=== PATIENT | male | born 1970 | race Caucasian/White ===

== ENCOUNTER 2016-04-19 12:04 | Emergency (ER) | payer BC ==
[2016-04-19 12:13] VITALS: BP 118/79
--- NOTE | 2016-04-19 12:52 | UC ---
Throat Pain/Nasal Félix HPI - HPI Summary HPI Summary: SINUS CONGESTON DRY COUGH SINCE . WORSENING WITH RASPY COUGH AND SINUS PRESSURE. NO FEVER. - History of Current Complaint Chief Complaint: UCRespiratory Stated Complaint: RESPIRATORY COMPLAINT Time Seen by Provider: 04/19/16 12:14 Hx Obtained From: Patient Onset/Duration: Gradual Onset, Lasting Weeks, Still Present Severity: Moderate Cough: Nonproductive Associated Signs & Symptoms: Positive: Hoarseness, Sinus Discomfort, Nasal Discharge, Fever - Epiglottits Risk Factors Epiglottis Risk Factors: Negative - Allergies/Home Medications Allergies/Adverse Reactions: Allergies Allergy/AdvReac Type Severity Reaction Status Date / Time Cephalosporins Allergy Intermediate Rash Verified 04/19/16 12:12 Macrolides and Ketolides Allergy Intermediate Rash Verified 04/19/16 12:12 Penicillins Allergy Intermediate Rash Verified 04/19/16 12:12 Sulfa Drugs Allergy Intermediate Rash Verified 04/19/16 12:12 PMH/Surg Hx/FS Hx/Imm Hx Previously Healthy: Yes Endocrine History Of: Reports: Dyslipidemia Denies: Diabetes, Thyroid Disease, Hyperthyroidism, Hypothyroidism Cardiovascular History Of: Denies: Cardiac Disorders, Hypertension, Pacemaker/ICD, Myocardial Infarction , Congestive Heart Failure, Atrial Fibrillation, Deep Vein Thrombosis, Bleeding Disorders Respiratory History Of: Denies: COPD, Asthma, Bronchitis, Pneumonia, Pulmonary Embolism GI/ History Of: Denies: Gastroesophageal Reflux, Ulcer, Gastrointestinal Bleed, Gall Bladder Disease, Kidney Stones, Diverticulitis, Renal Disease, Urosepsis Neurological History Of: Denies: TIA, CVA, Dementia, Seizures, Migraine Psychological History Of: Denies: Anxiety, Depression, Bipolar Disorder, Schizophrenia, Post Traumatic Stress Disorder Cancer History Of: Denies: Lung Cancer, Colorectal Cancer, Breast Cancer, Prostate Cancer, Cervical Cancer Other History Of: Negative For: HIV, Hepatitis B, Hepatitis C, Anticoagulant Therapy - Surgical History Surgical History: None Surgery Procedure, Year, and Place: lithotripsy several years ago - Family History Known Family History: Positive: None Negative: Respiratory Disease - Social History Occupation: Employed Full-time Alcohol Use: Weekly Substance Use Type: None Smoking Status (MU): Never Smoked Tobacco - Immunization History Most Recent Influenza Vaccination: December 2014 Review of Systems Constitutional: Negative Skin: Negative Eyes: Negative ENT: Ear Ache, Nasal Discharge Respiratory: Negative Cardiovascular: Negative Gastrointestinal: Negative Genitourinary: Negative Motor: Negative Neurovascular: Negative Musculoskeletal: Negative Neurological: Negative Psychological: Negative All Other Systems Reviewed And Are Negative: Yes Physical Exam Triage Information Reviewed: Yes Appearance: Well-Appearing, No Pain Distress, Well-Nourished Vital Signs: Initial Vital Signs Temp 98.7 F 04/19/16 12:09 Pulse 96 04/19/16 12:09 Resp 14 04/19/16 12:09 BP 118/79 04/19/16 12:09 Pulse Ox 96 04/19/16 12:09 Vital Signs Reviewed: Yes Eye Exam: Normal Eyes: Positive: Conjunctiva Clear ENT: Positive: Hearing grossly normal, Nasal congestion, TM bulging, TM dull Dental Exam: Normal Neck exam: Normal Neck: Positive: Supple, Nontender, No Lymphadenopathy Respiratory Exam: Normal Respiratory: Positive: Chest non-tender, Lungs clear, Normal breath sounds, No respiratory distress, No accessory muscle use Cardiovascular Exam: Normal Cardiovascular: Positive: RRR, No Murmur, Pulses Normal Abdominal Exam: Normal Abdomen Description: Positive: Nontender, No Organomegaly Musculoskeletal Exam: Normal Musculoskeletal: Positive: Strength Intact, ROM Intact Neurological Exam: Normal Psychological Exam: Normal Psychological: Positive: Normal Response To Family Skin Exam: Normal Throat Pain/Nasal Course/Dx - Differential Dx/Diagnosis Differential Diagnosis/HQI/PQRI: Sinusitis, URI Provider Diagnoses: SINUSITIS. BRONCHITIS Discharge - Discharge Plan Condition: Stable Disposition: HOME Prescriptions: Benzonatate CAP* [Tessalon CAP*] 100 mg PO TID PRN #15 cap PRN Reason: Cough DOXYcycline CAP(*) [DOXYcycline 100MG CAP(*)] 100 mg PO BID #20 cap predniSONE TAB* [Deltasone TAB*] 10 mg PO DAILY #28 tab Patient Education Materials: Sinusitis (ED), Acute Bronchitis (ED) Referrals: Karen Manzano NP [Primary Care Provider] -
== END 2016-04-19 12:54 | disposition home or self-care (01) ==
LOC: UCCORT 12:04
DX: J32.9 Chronic sinusitis, unspecified (principal); J40 Bronchitis, not specified as acute or chronic; E78.5 Hyperlipidemia, unspecified; Z88.0 Allergy status to penicillin; Z88.2 Allergy status to sulfonamides; Z88.3 Allergy status to other anti-infective agents; Z88.8 Allergy status to other drugs, medicaments and biological substances
CPT/HCPCS: 99212; G0463

== ENCOUNTER 2017-07-13 11:43 | Emergency (ER) | payer BC ==
[2017-07-13 13:47] VITALS: BP 119/85
--- NOTE | 2017-07-13 13:54 | UC ---
UC General HPI - HPI Summary HPI Summary: pt is c/o a sinus infection. describes as pressure and "nasty colored chinks" from nose. states ill for over a week and is worsening. states allergies this time of year and then sinus infection starts. - History of Current Complaint Stated Complaint: SINUS PRESSURE Time Seen by Provider: 07/13/17 13:45 Hx Obtained From: Patient Onset/Duration: Gradual Onset Timing: Constant Pain Intensity: 1 Associated Signs & Symptoms: Positive: Headache - Allergy/Home Medications Allergies/Adverse Reactions: Allergies Allergy/AdvReac Type Severity Reaction Status Date / Time Cephalosporins Allergy Rash Verified 07/13/17 13:49 Macrolide Antibiotics Allergy Rash Verified 07/13/17 13:49 Penicillins Allergy Rash Verified 07/13/17 13:49 Sulfa (Sulfonamide Allergy Rash Verified 07/13/17 13:49 Antibiotics) PMH/Surg Hx/FS Hx/Imm Hx - Additional Past Medical History Additional PMH: allergies, sinusitis Endocrine History: Dyslipidemia Other History Of: Negative For: HIV, Hepatitis B, Hepatitis C, Anticoagulant Therapy - Surgical History Surgical History: None Surgery Procedure, Year, and Place: lithotripsy several years ago - Family History Known Family History: Positive: None Negative: Respiratory Disease - Social History Occupation: Employed Full-time Lives: With Family Alcohol Use: Rare Substance Use Type: None Smoking Status (MU): Never Smoked Tobacco - Immunization History Most Recent Influenza Vaccination: December 2014 Vaccination Up to Date: Yes Review of Systems Constitutional: Negative Skin: Negative Eyes: Negative ENT: Nasal Discharge, Sinus Congestion, Sinus Pain/Tenderness Respiratory: Negative Cardiovascular: Negative Gastrointestinal: Negative Genitourinary: Negative Motor: Negative Neurovascular: Negative Musculoskeletal: Negative Neurological: Headache Psychological: Negative Is Patient Immunocompromised?: No All Other Systems Reviewed And Are Negative: Yes Physical Exam Triage Information Reviewed: Yes Appearance: Well-Appearing Vital Signs: Initial Vital Signs Temp 99.1 F 07/13/17 13:42 Pulse 78 07/13/17 13:42 Resp 16 07/13/17 13:42 BP 119/85 07/13/17 13:42 Pulse Ox 99 07/13/17 13:42 Vital Signs Reviewed: Yes Eyes: Positive: Conjunctiva Clear ENT: Positive: Pharynx normal, Nasal congestion, TMs normal, Sinus tenderness. Negative: Nasal drainage Neck: Positive: Supple, Nontender, No Lymphadenopathy Respiratory Exam: Normal Respiratory: Positive: Lungs clear, Normal breath sounds Cardiovascular: Positive: RRR, No Murmur Abdomen Description: Positive: Nontender, No Organomegaly, Soft Bowel Sounds: Positive: Present Musculoskeletal: Positive: ROM Intact Neurological: Positive: Alert Psychological: Positive: Age Appropriate Behavior Course/Dx - Course Course Of Treatment: c/w sinsusitis. pcn allergy thus will tx doxycycline. otc flonase suggested as well. - Differential Dx - Multi-Symptom Provider Diagnoses: sinusitis Discharge - Sign-Out/Discharge Documenting (check all that apply): Discharge - Discharge Plan Condition: Stable Disposition: HOME Prescriptions: DOXYcycline CAP(*) [DOXYcycline 100MG CAP(*)] 100 mg PO BID #20 cap Patient Education Materials: Sinusitis (ED) Referrals: Lilia Martinez MD [Primary Care Provider] - 7 Days - Billing Disposition and Condition Condition: STABLE Disposition: HOME
== END 2017-07-13 14:03 | disposition home or self-care (01) ==
LOC: UCCORT 11:43
DX: J32.9 Chronic sinusitis, unspecified (principal); Z88.2 Allergy status to sulfonamides; Z88.0 Allergy status to penicillin; Z88.3 Allergy status to other anti-infective agents
CPT/HCPCS: 99212; G0463

== ENCOUNTER 2018-01-14 18:35 | Emergency (ER) | payer BC, OTHER ==
[2018-01-14] MEDS ORDERED: Fluorescein Sodium TOPICAL* 1 MG TEST STRIP OPHTHALMIC ONE (18:40)
[2018-01-14] MEDS ORDERED: Tetracaine 0.5% OPTH.SOL 4 ML* 1 DROP BTL BOTH EYES ONE (18:40)
[2018-01-14 18:41] VITALS: BP 135/83
--- NOTE | 2018-01-14 18:43 | UC ---
Eye Complaint HPI - HPI Summary HPI Summary: 47 yo male presents with flash burn to left side of face/eye. 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 He had immediate pain, but rates it a 3/10. Eye is tearing and has some blurry vision. - History of Current Complaint Chief Complaint: UCEye Stated Complaint: EYE INJURY Time Seen by Provider: 01/14/18 18:42 Hx Obtained From: Patient Timing: Constant Severity Initially: Mild Severity Currently: Mild Pain Intensity: 3 Pain Scale Used: 0-10 Numeric - Allergies/Home Medications Allergies/Adverse Reactions: Allergies Allergy/AdvReac Type Severity Reaction Status Date / Time Cephalosporins Allergy Rash Verified 01/14/18 18:42 Macrolide Antibiotics Allergy Rash Verified 01/14/18 18:42 Penicillins Allergy Rash Verified 01/14/18 18:42 Sulfa (Sulfonamide Allergy Rash Verified 01/14/18 18:42 Antibiotics) PMH/Surg Hx/FS Hx/Imm Hx Endocrine History: Dyslipidemia Other History Of: Negative For: HIV, Hepatitis B, Hepatitis C, Anticoagulant Therapy - Surgical History Surgical History: Yes Surgery Procedure, Year, and Place: lithotripsy several years ago - Family History Known Family History: Positive: None Negative: Respiratory Disease - Social History Occupation: Employed Full-time Lives: With Family Alcohol Use: Rare Substance Use Type: None Smoking Status (MU): Never Smoked Tobacco - Immunization History Most Recent Influenza Vaccination: December 2014 Most Recent Tetanus Shot: unknown Vaccination Up to Date: Yes Review of Systems Constitutional: Negative Skin: Negative Eyes: Blurred Vision, Drainage, Eye Redness Respiratory: Negative Cardiovascular: Negative Neurological: Negative Psychological: Negative All Other Systems Reviewed And Are Negative: Yes Physical Exam - Summary Physical Exam Summary: GENERAL: NAD. WDWN. No pain distress. SKIN: No rashes, sores, lesions, or open wounds. HEENT: Head: AT/NC Eyes: EOM intact. PERRLA. LEFT EYE: Generalized moderate injection. Clear tears. Fluorescein exam WNL and without any increased uptake, punctate lesion, or karthik sign. RIGHT EYE: WNL and without inflammation or injection. Ears: Hearing grossly normal. TMs intact, no bulging, erythema, or edema. NECK: Supple. Nontender. No lymphadenopathy. CHEST: CTAB. No r/r/w. No accessory muscle use. Breathing comfortably and in no distress. CV: RRR. Without m/r/g. Pulses intact. Cap refill <2seconds NEURO: Alert. PSYCH: Age appropriate behavior. Triage Information Reviewed: Yes Vital Signs: Initial Vital Signs Temp 98.6 F 01/14/18 18:38 Pulse 74 01/14/18 18:38 Resp 18 01/14/18 18:38 BP 135/83 01/14/18 18:38 Pulse Ox 98 01/14/18 18:38 Vital Signs Reviewed: Yes Eye Complaint Course/Dx - Course Course Of Treatment: Tetracaine applied to left eye with great relief of discomfort. Pt's pain is currently well controled with 3/10 pain at base. He declined a prescription for pain medication at this time and will take tylenol and ibuprofen. He was dispensed saline eye drops to use one drop 4-5 times a day in his left eye. Advised to f/u with his own eye doctor in 3-[address] Trinh if his eye doctor cannot see him. Pt voiced understanding. - Differential Dx/Diagnosis Provider Diagnoses: Photokeratitis left eye Discharge - Sign-Out/Discharge Documenting (check all that apply): Patient Departure All imaging exams completed and their final reports reviewed: No Studies - Discharge Plan Condition: Stable Disposition: HOME Patient Education Materials: Corneal Flash Rossi (ED) Referrals: Lilia Martinez MD [Primary Care Provider] - Donaldo Trinh MD [Medical Doctor] - If Needed Additional Instructions: If you develop a fever, shortness of breath, chest pain, new or worsening symptoms - please call your PCP or go to the ED. 1) Use the eye drop once in the left 4-5 times a day 2) Please follow up with your eye doctor in 3-4 days - if he cannot see you, please follow up with Dr. Trinh at the number below. - Billing Disposition and Condition Condition: STABLE Disposition: Home
[2018-01-14] MEDS ORDERED: Eye Irrigation Solution 30 ML BOTTLE LEFT EYE ONE (19:09)
== END 2018-01-14 19:29 | disposition home or self-care (01) ==
LOC: UCEAST 18:35
DX: H16.132 Photokeratitis, left eye (principal); Z88.1 Allergy status to other antibiotic agents; Z88.0 Allergy status to penicillin; Z88.2 Allergy status to sulfonamides
CPT/HCPCS: 99212; A9270-GY; G0463

== ENCOUNTER 2019-03-28 09:58 | Emergency (ER) | payer BC, OTHER ==
--- OUTSIDE RECORDS SUMMARY | 2019-03-28 11:12 | XMS REPORT | Continuity of Care Document ---
:1970 External Reference #:[id number] Author Name Hoa Moreno M.D. Address [address] [address] Care Team Providers Name Role Phone Ellie Rendon, PNP-BC, [employer], Ibclc Care Team Information Implementation Project Manager [phone] - Family Problems Active Problems Provider Date Hyperlipidemia Ary Vizcarra FNP Onset: 03/02/2012 Benign prostatic hyperplasia Nawaf Manzano FNP Onset: 04/18/2015 Note: followed by Dr. Moreno Prostate specific antigen abnormal Nawaf Manzano FNP Onset: 2015 Note: followed by Dr. Moreno Impotence of organic origin Nawfa Manzano FNP Onset: 04/18/2015 Note: followed by Dr. Moreno Bilateral inguinal hernia Hoa Moreno M.D. Onset: 03/18/2019 Malignant tumor of prostate Hoa Moreno M.D. Onset: 03/11/2019 Kidney stone Hoa Moreno M.D. Onset: 10/15/2018 Social History Type Date Description Comments Sex Unknown Smokeless Tobacco Never Used Smokeless Tobacco ETOH Use Rarely consumes alcohol Tobacco Use Start: Unknown Patient has never smoked Recreational Drug Use Denies Drug Use Smoking Status Reviewed: 03/17/19 Patient has never smoked Exercise Type/Frequency Does not exercise Allergies, Adverse Reactions, Alerts Active Allergies Reaction Severity Comments Date Sulfa Antibiotics 10/26/2013 Macrolides And Ketolides 10/26/2013 Cephalosporins 10/26/2013 Penicillins 05/28/2011 Erythromycin 05/28/2011 Medications Active Medications SIG Qnty Indications Ordering Provider Date Tadalafil take 1 tab once 14tabs Hoa Moreno, 10/15/2018 20mg Tablets a day as needed M.D. the day of intercourse. Atorvastatin Calcium take 1 tablet by 90tabs Ellie Rendon, 06/06/2014 10mg mouth once daily PNP-BC, [employer], Tablets Ibclc Immunizations CPT Code Status Date Vaccine Lot # [id number] Given 02/01/2009 H1N1 Immuniation Adminstration Vital Signs Date Vital Result Comment 03/18/2019 4:13pm BP Systolic 140 mmHg BP Diastolic 90 mmHg Body Temperature 96.9 F Heart Rate 85 /min Respiratory Rate 16 /min Height 71 inches 5'11" Pain Level 0 [place] body weight in kilograms 78 kg O2 % BldC Oximetry 97 % 03/11/2019 4:04pm BP Systolic 127 mmHg BP Diastolic 84 mmHg Body Temperature 99.3 F Heart Rate 91 /min Respiratory Rate 16 /min Height 71 inches 5'11" Pain Level 0 [place] body weight in kilograms 78 kg O2 % BldC Oximetry 98 % Results Test Acquired Date Facility Test Result H/L Range Note Basic Metabolic 03/16/2019 [facility] Glucose 104 mg/dL Normal 74-106 1 Panel [address] [place] [address] [phone] BUN 16 mg/dL Normal 7-18 Creatinine 1.1 mg/dL Normal 0.6-1.3 Glom Filtration Rate, Estimate >60 mL/min >60 If >60 mL/min >60 2 BUN/Creat 14.5 ratio Sodium 139 mmol/L Normal 136-145 Potassium 4.2 mmol/L Normal 3.5-5.1 Chloride 106 mmol/L Normal 98-107 Carbon Dioxide 30 mmol/L Normal 21-32 Anion Gap 3 mEq/L Low 8-16 Calcium 9.1 mg/dL Normal 8.5-10.1 Ua RFX Micro & 02/04/2019 [facility] Urine Color Light-Yellow Yellow 3 Culture II [address] [place] [address] [phone] Urine Clarity Clear Clear Urine Glucose - Dipstick NEGATIVE mg/dL Negative Urine Bilirubin - Dipstick NEGATIVE Negative Urine Ketone NEGATIVE mg/dL Negative Urine Specific [place] 1.021 Normal 1.010-1.030 Urine Blood NEGATIVE Negative Urine PH 6.0 Low 6.5-7.5 Urine Protein - Dipstick NEGATIVE mg/dL Negative Urine Urobilinogen - Dipstick 2.0 mg/dL < 2.0 Urine Nitrite - Dipstick NEGATIVE Negative Urine Leuk Esterase NEGATIVE Negative Source: URINE, CLEAN CAT <SEE NOTE> 4 Laboratory test 02/04/2019 [facility] Prostate 6.37 ng/mL < 4.0 [address] [place] [address] Antigen [phone] Laboratory test 01/25/2019 [facility] Prostate 7.02 ng/mL < 4.0 [address] [place] [address] Antigen [phone] Urine Dipstick 10/28/2018 [facility] Ua Leuko - Negative Ua Nitrite - Negative Ua Urobilinogen .2 0.2 - 1.0 E.U./dL Ua Protein - Negative Ua PH 5.5 Low 6.5-7.5 Ua Blood - Negative Ua Specific [place] 1.030 1.010-1.030 Ua Ketones - Negative Ua Bilirubin - Negative Ua Glucose - Negative Comprehensive 10/27/[address] [facility] [address] Glucose 79 mg/dL Normal 74-106 7 Metabolic Panel [address] [place] [address] [phone] BUN 20 mg/dL High 7-18 Creatinine 1.0 mg/dL Normal 0.6-1.3 Glom Filtration Rate, Estimate >60 mL/min >60 If >60 mL/min >60 8 BUN/Creat 20.0 ratio Sodium 141 mmol/L Normal 136-145 Potassium 3.6 mmol/L Normal 3.5-5.1 Chloride 107 mmol/L Normal 98-107 Carbon Dioxide 26 mmol/L Normal 21-32 Anion Gap 8 mEq/L Normal 8-16 Calcium 9.2 mg/dL Normal 8.5-10.1 Total Protein 7.9 g/dL Normal 6.4-8.2 Albumin 4.2 g/dL Normal 3.4-5.0 Globulin 3.7 g/dL Normal 1.9-4.3 Alb/Glob 1.1 ratio Bilirubin,Total 1.2 mg/dL High 0.2-1.0 Sgot/Ast 36 U/L Normal 15-37 SGPT/Alt 44 U/L Normal 12-78 Alkaline Phosphatase 75 U/L Normal 45-117 LDL Cholesterol Profile 10/27/[address] [facility] [address] Cholesterol 177 mg/dL <200 9 [address] [place], [place] [id number] [phone] Triglycerides 90 mg/dL <150 10 HDL Cholesterol 44 mg/dL >40 11 LDL-Cholesterol 115 mg/dL < 100 12 Urine Dipstick 10/15/2018 [facility] Ua Color Yellow Yellow Ua Clarity Clear Clear Ua Leuko Negative Negative Ua Nitrite Negative Negative Ua Urobilinogen 0.2 0.2 - 1.0 E.U./dL Ua Protein Negative Negative Ua PH 6.0 Low 6.5-7.5 Ua Blood Negative Negative Ua Specific [place] 1.020 1.010-1.030 Ua Ketones Negative Negative Ua Bilirubin Negative Negative Ua Glucose Negative Negative Ua RFX Micro & Culture 10/15/2018 [facility] Urine Color YELLOW Yellow 13 II [address] [place], [place] [id number] [phone] Urine Clarity CLEAR Clear Urine Glucose - Dipstick NEGATIVE mg/dL Negative Urine Bilirubin - Dipstick NEGATIVE Negative Urine Ketone NEGATIVE mg/dL Negative Urine Specific [place] 1.015 Normal 1.010-1.030 Urine Blood NEGATIVE Negative Urine PH 6.5 Normal 6.5-7.5 Urine Protein - Dipstick NEGATIVE mg/dL Negative Urine Urobilinogen - Dipstick 0.2 E.U./dL Normal 0.2-1.0 Urine Nitrite - Dipstick NEGATIVE Negative Urine Leuk Esterase NEGATIVE Negative Source: URINE, CLEAN CAT <SEE NOTE> 14 Laboratory test 10/15/2018 [facility] Prostate 5.69 ng/mL < 4.0 15 finding [address] [place] [address] Antigen [phone] 1 C61 2 Note: Persistent reduction for 3 months or more in an eGFR <60 mL/min/1.73 m2 defines CKD. Patients with eGFR values >/=60 mL/min/1.73 m2 may also have CKD if evidence of persistent proteinuria is present. The original MDRD equation for estimated GFR is not valid for patients less than 18 years of age. Additional information may be found at www.kdoqi.org. 3 R97.20 4 URINE, CLEAN CATCH 5 THIS ASSAY IS NOT INTENDED A CANCER SCREENING TEST The concentration of PSA in a given specimen, determined with assays from different manufacturers, can vary due to differences in assay methods and reagent specificity. Values obtained from different assay methods cannot be used interchangeably. Method: Siemens Dimension Earp Chemiluminescent immunoassay. 6 THIS ASSAY IS NOT INTENDED A CANCER SCREENING TEST The concentration of PSA in a given specimen, determined with assays from different manufacturers, can vary due to differences in assay methods and reagent specificity. Values obtained from different assay methods cannot be used interchangeably. Method: Siemens Dimension Earp Chemiluminescent immunoassay. 7 E78.5 has appt w/pcp dr. ivan 10/28/18 to discuss 8 Note: Persistent reduction for 3 months or more in an eGFR <60 mL/min/1.73 m2 defines CKD. Patients with eGFR values >/=60 mL/min/1.73 m2 may also have CKD if evidence of persistent proteinuria is present. The original MDRD equation for estimated GFR is not valid for patients less than 18 years of age. Additional information may be found at www.kdoqi.org. 9 Reference Guidelines*: Desirable: ........... < 200 mg/dL Borderline High: ..... 200-239 mg/dL High: ................ >= 240 mg/dL * The National Cholesterol Education Program (NCEP) 10 Reference Guidelines*: Normal: ............. < 150 mg/dL Borderline High: .... 150-199 mg/dL High: ............... 200-499 mg/dL Very High: .......... > 500 mg/dL * Source: National Cholesterol Education Program (NCEP) 11 Reference Guidelines*: Low HDL: ..... < 40 mg/dL Normal: ..... 40-60 mg/dL Desirable: ... > 60 mg/dL *The National Cholesterol Education Program(NCEP) 12 Reference Guidelines*: Optimal:........... <100 mg/dL Near Optimal....... 100-129 mg/dL Borderline High.... 130-159 mg/dL High............... 160-189 mg/dL Very High.......... >=190 mg/dL * Source: National Cholesterol Education Program (NCEP) 13 N40.1 Z12.5 14 URINE, CLEAN CATCH 15 THIS ASSAY IS NOT INTENDED A CANCER SCREENING TEST The concentration of PSA in a given specimen, determined with assays from different manufacturers, can vary due to differences in assay methods and reagent specificity. Values obtained from different assay methods cannot be used interchangeably. Method: Siemens [employer] Earp Chemiluminescent immunoassay. Procedures Date Code Description Status 03/03/2019 98449 Biopsy Prostate Needle Or Punch Completed 10/15/2018 71004 Measurement Post Voiding Residual Urine By Completed Ultrasound,Non-Imaging 11/11/2016 92309282 Colonoscopy Completed Medical Devices Description No Information Available Encounters Type Date Location Provider Dx Diagnosis Office Visit 03/18/2019 4:15p Urology Hoa Moreno M.D. C61 Malignant neoplasm of prostate K40.20 Bi inguinal hernia, w/o obst or gangrene, not spcf as recur Office Visit 03/11/2019 4:00p Urology Hoa Moreno C61 Malignant neoplasm M.D. of prostate Office Visit 01/25/2019 3:45p Urology Hoa Moreno R97.20 Elevated prostate M.D. specific antigen [PSA] N20.0 Calculus of kidney Office Visit 10/28/2018 4:00p Family Medicine Ellie Rendon, Z00.01 Encounter for [facility] [place], [employer], general adult Ibclc medical exam w abnormal findings J30.9 Allergic rhinitis, unspecified E78.5 Hyperlipidemia, unspecified R05 Cough R53.83 Other fatigue Office Visit 10/15/2018 4:15p Urology Hoa Moreno R97.20 Elevated prostate M.D. specific antigen [PSA] N20.0 Calculus of kidney Assessments Date Code Description Provider 03/18/2019 C61 Malignant neoplasm of prostate Hoa Moreno M.D. 03/18/2019 K40.20 Bilateral inguinal hernia, without Hoa Moreno M.D. obstruction or gangrene, not specified as recurrent 03/11/2019 C61 Malignant neoplasm of prostate Hoa Moreno M.D. 03/03/2019 R97.20 Elevated prostate specific antigen Hoa Moreno M.D. [PSA] 03/03/2019 C61 Malignant neoplasm of prostate Hoa Moreno M.D. 02/04/2019 R97.20 Elevated prostate specific antigen Hoa Moreno M.D. [PSA] 01/25/2019 R97.20 Elevated prostate specific antigen Hoa Moreno M.D. [PSA] 01/25/2019 N20.0 Calculus of kidney Hoa Moreno M.D. 10/28/2018 Z00.01 Encounter for general adult medical Ellie Rendon PNP-BC , JEFFREY, examination with abnormal findings Ibclc 10/28/2018 J30.9 Allergic rhinitis, unspecified Ellie Rendon PNP-BC, JEFFREY, Ibclc 10/28/2018 E78.5 Hyperlipidemia, unspecified Ellie Rendon PNP-BC, JEFFREY, Ibclc 10/28/2018 R05 Cough Ellie Rendon PNP-BC, JEFFREY, Ibclc 10/28/2018 R53.83 Other fatigue Ellie Rendon PNP-BC, [employer], Ibclc 10/15/2018 R97.20 Elevated prostate specific antigen Hoa Moreno M.D. [PSA] 10/15/2018 N20.0 Calculus of kidney Hoa Moreno M.D. Plan of Treatment Future Appointment(s):07/27/2019 3:45 pm - Hoa Moreno M.D. at Urology Functional Status Description No Information Available Mental Status Description No Information Available Referrals Description No Information Available
--- OUTSIDE RECORDS SUMMARY | 2019-03-28 11:12 | XMS REPORT | Continuity of Care Document ---
:1970 External Reference #:[id number] Author Name Hoa Moreno M.D. Address [address] [address] Care Team Providers Name Role Phone Ellie Rendon, PNP-BC, [employer], Ibclc Care Team Information Transformation Specialist [phone] - Family Problems Active Problems Provider Date Hyperlipidemia Ary Vizcarra FNP Onset: 03/02/2012 Benign prostatic hyperplasia Nawaf Manzano FNP Onset: 04/18/2015 Note: followed by Dr. Moreno Prostate specific antigen abnormal Nawaf Manzano FNP Onset: 2015 Note: followed by Dr. Moreno Impotence of organic origin Nawaf Manzano FNP Onset: 04/18/2015 Note: followed by Dr. Moreno Malignant tumor of prostate Hoa Moreno M.D. Onset: 03/11/2019 Kidney stone Hoa Moreno M.D. Onset: 10/15/2018 Social History Type Date Description Comments Sex Unknown Smokeless Tobacco Never Used Smokeless Tobacco ETOH Use Rarely consumes alcohol Tobacco Use Start: Unknown Patient has never smoked Recreational Drug Use Denies Drug Use Smoking Status Reviewed: 03/08/19 Patient has never smoked Exercise Type/Frequency Does not exercise Allergies, Adverse Reactions, Alerts Active Allergies Reaction Severity Comments Date Sulfa Antibiotics 10/26/2013 Macrolides And Ketolides 10/26/2013 Cephalosporins 10/26/2013 Penicillins 05/28/2011 Erythromycin 05/28/2011 Medications Active Medications SIG Qnty Indications Ordering Provider Date Tadalafil take 1 tab once 14tabs Hoa Moreno 10/15/2018 20mg Tablets a day as needed M.D. the day of intercourse. Atorvastatin Calcium take 1 tablet by Ellie Champion, 06/06/2014 10mg mouth once daily PNP-BC, [employer], Tablets Ibclc Immunizations CPT Code Status Date Vaccine Lot # [id number] Given 02/01/2009 H1N1 Immuniation Adminstration Vital Signs Date Vital Result Comment 03/11/2019 4:04pm BP Systolic 127 mmHg BP Diastolic 84 mmHg Body Temperature 99.3 F Heart Rate 91 /min Respiratory Rate 16 /min Height 71 inches 5'11" Pain Level 0 [place] body weight in kilograms 78 kg O2 % BldC Oximetry 98 % 02/04/2019 4:14pm BP Systolic 134 mmHg BP Diastolic 78 mmHg Body Temperature 98.7 F Heart Rate 88 /min Respiratory Rate 18 /min Height 71 inches 5'11" Weight 235.00 lb Pain Level 0 BMI (Body Mass Index) 32.8 kg/m2 BSA (Body Surface Area) 2.26 m2 [place] body weight in kilograms 78 kg O2 % BldC Oximetry 95 % Results Test Acquired Date Facility Test Result H/L Range Note Ua RFX Micro & 02/04/2019 [facility] Urine Color Light-Yellow Yellow 1 Culture II [address] [place], [place] [id number] [phone] Urine Clarity Clear Clear Urine Glucose - Dipstick NEGATIVE mg/dL Negative Urine Bilirubin - Dipstick NEGATIVE Negative Urine Ketone NEGATIVE mg/dL Negative Urine Specific [place] 1.021 Normal 1.010-1.030 Urine Blood NEGATIVE Negative Urine PH 6.0 Low 6.5-7.5 Urine Protein - Dipstick NEGATIVE mg/dL Negative Urine Urobilinogen - Dipstick 2.0 mg/dL < 2.0 Urine Nitrite - Dipstick NEGATIVE Negative Urine Leuk Esterase NEGATIVE Negative Source: URINE, CLEAN CAT <SEE NOTE> 2 Laboratory test 02/04/2019 [facility] Prostate 6.37 ng/mL < 4.0 3 finding [address] [place] [address] Antigen [phone] Laboratory test 01/25/2019 [facility] Prostate 7.02 ng/mL < 4.0 4 finding [address] [place] [address] Antigen [phone] Urine Dipstick 10/28/2018 [facility] Ua Leuko - Negative Ua Nitrite - Negative Ua Urobilinogen .2 0.2 - 1.0 E.U./dL Ua Protein - Negative Ua PH 5.5 Low 6.5-7.5 Ua Blood - Negative Ua Specific [place] 1.030 1.010-1.030 Ua Ketones - Negative Ua Bilirubin - Negative Ua Glucose - Negative Comprehensive 10/27/2018 [facility] [address] Glucose 79 mg/dL Normal 74-106 5 Metabolic Panel [address] [place] [address] [phone] BUN 20 mg/dL High 7-18 Creatinine 1.0 mg/dL Normal 0.6-1.3 Glom Filtration Rate, Estimate >60 mL/min >60 If >60 mL/min >60 6 BUN/Creat 20.0 ratio Sodium 141 mmol/L Normal [...] U/L Normal 45-117 LDL Cholesterol Profile 10/27/2018 [facility] [employer] [address] Cholesterol 177 mg/dL <200 7 [address] [place] [address] [phone] Triglycerides 90 mg/dL <150 8 HDL Cholesterol 44 mg/dL >40 9 LDL-Cholesterol 115 mg/dL < 100 10 Urine Dipstick 10/15/2018 [facility] Ua Color Yellow Yellow Ua Clarity Clear Clear Ua Leuko Negative Negative Ua Nitrite Negative Negative Ua Urobilinogen 0.2 0.2 - 1.0 E.U./dL Ua Protein Negative Negative Ua PH 6.0 Low 6.5-7.5 Ua Blood Negative Negative Ua Specific [place] 1.020 1.010-1.030 Ua Ketones Negative Negative Ua Bilirubin Negative Negative Ua Glucose Negative Negative Ua RFX Micro & Culture 10/15/2018 [facility] Urine Color YELLOW Yellow 11 [address] [place] [address] [phone] Urine Clarity CLEAR Clear Urine Glucose - Dipstick NEGATIVE mg/dL Negative Urine Bilirubin - Dipstick NEGATIVE Negative Urine Ketone NEGATIVE mg/dL Negative Urine Specific [place] 1.015 Normal 1.010-1.030 Urine Blood NEGATIVE Negative Urine PH 6.5 Normal 6.5-7.5 Urine Protein - Dipstick NEGATIVE mg/dL Negative Urine Urobilinogen - Dipstick 0.2 E.U./dL Normal 0.2-1.0 Urine Nitrite - Dipstick NEGATIVE Negative Urine Leuk Esterase NEGATIVE Negative Source: URINE, CLEAN CAT <SEE NOTE> 12 Laboratory test 10/15/2018 [facility] Prostate 5.69 ng/mL < 4.[address] [place] [address] Antigen [phone] 1 R97.20 2 URINE, CLEAN CATCH 3 THIS ASSAY IS NOT INTENDED A CANCER SCREENING TEST The concentration of PSA in a given specimen, determined with assays from different manufacturers, can vary due to differences in assay methods and reagent specificity. Values obtained from different assay methods cannot be used interchangeably. Method: [employer] [place] Chemiluminescent immunoassay. 4 THIS ASSAY IS NOT INTENDED A CANCER SCREENING TEST The concentration of PSA in a given specimen, determined with assays from different manufacturers, can vary due to differences in assay methods and reagent specificity. Values obtained from different assay methods cannot be used interchangeably. Method: [employer] [place] Chemiluminescent immunoassay. 5 E78.5 has appt w/pcp dr. ivan 10/28/18 to discuss 6 Note: Persistent reduction for 3 months or more in an eGFR <60 mL/min/1.73 m2 defines CKD. Patients with eGFR values >/=60 mL/min/1.73 m2 may also have CKD if evidence of persistent proteinuria is present. The original MDRD equation for estimated GFR is not valid for patients less than 18 years of age. Additional information may be found at www.kdoqi.org. 7 Reference Guidelines*: Desirable: ........... < 200 mg/dL Borderline High: ..... 200-239 mg/dL High: ................ >= 240 mg/dL * The National Cholesterol Education Program (NCEP) 8 Reference Guidelines*: Normal: ............. < 150 mg/dL Borderline High: .... 150-199 mg/dL High: ............... 200-499 mg/dL Very High: .......... > 500 mg/dL * Source: National Cholesterol Education Program (NCEP) 9 Reference Guidelines*: Low HDL: ..... < 40 mg/dL Normal: ..... 40-60 mg/dL Desirable: ... > 60 mg/dL *The National Cholesterol Education Program(NCEP) 10 Reference Guidelines*: Optimal:........... <100 mg/dL Near Optimal....... 100-129 mg/dL Borderline High.... 130-159 mg/dL High............... 160-189 mg/dL Very High.......... >=190 mg/dL * Source: National Cholesterol Education Program (NCEP) 11 N40.1 Z12.5 12 URINE, CLEAN CATCH 13 THIS ASSAY IS NOT INTENDED A CANCER SCREENING TEST The concentration of PSA in a given specimen, determined with assays from different manufacturers, can vary due to differences in assay methods and reagent specificity. Values obtained from different assay methods cannot be used interchangeably. Method: [employer] [place] Chemiluminescent immunoassay. Procedures Date Code Description Status 10/15/2018 56045 Measurement Post Voiding Residual Urine By Completed Ultrasound,Non-Imaging 11/11/2016 39348999 Colonoscopy Completed Medical Devices Description No Information Available Encounters Type Date Location Provider Dx Diagnosis Office Visit 03/11/2019 Urology Hoa Moreno, C61 Malignant neoplasm 4:00p M.D. of prostate Office Visit 01/25/2019 Urology Hoa Moreno, R97.20 Elevated prostate 3:45p M.D. specific antigen [PSA] N20.0 Calculus of kidney Office Visit 10/28/2018 4:00p Family Medicine Ellie Rendon, Z00.[address] PNP-BC, [employer], general adult Ibclc medical exam w abnormal findings J30.9 Allergic rhinitis, unspecified E78.5 Hyperlipidemia, unspecified R05 Cough R53.83 Other fatigue Office Visit 10/15/2018 4:15p Urology Hoa Moreno, R97.20 Elevated prostate M.D. specific antigen [PSA] N20.0 Calculus of kidney Assessments Date Code Description Provider 03/11/2019 C61 Malignant neoplasm of prostate Hoa Moreno M.D. 02/04/2019 R97.20 Elevated prostate specific antigen Hoa Moreno M.D. [PSA] 01/25/2019 R97.20 Elevated prostate specific antigen Hoa Moreno M.D. [PSA] 01/25/2019 N20.0 Calculus of kidney Hoa Moreno M.D. 10/28/2018 Z00.01 Encounter for general adult medical Ellie Rendon PNP-BC , [employer], examination with abnormal findings Ibclc 10/28/2018 J30.9 Allergic rhinitis, unspecified Ellie Rendon PNP-BC, [employer], Ibclc 10/28/2018 E78.5 Hyperlipidemia, unspecified Ellie Rendon PNP-BC, [employer], Ibclc 10/28/2018 R05 Cough Ellie Rendon PNP-BC, [employer], Ibclc 10/28/2018 R53.83 Other fatigue Ellie Rendon PNP-BC, [employer], Ibclc 10/15/2018 R97.20 Elevated prostate specific antigen Hoa Moreno M.D. [PSA] 10/15/2018 N20.0 Calculus of kidney Hoa Moreno M.D. Plan of Treatment Future Appointment(s):07/27/2019 3:45 pm - Hoa Mroeno M.D. at Urology Functional Status Description No Information Available Mental Status Description No Information Available Referrals Description No Information Available
--- NOTE | 2019-03-28 11:38 | UC ---
Throat Pain/Nasal Félix HPI - HPI Summary HPI Summary: 48-year-old male who has had head congestion and cold symptoms over the past 2 weeks and now with sinus pressure today and coughing up green sputum. Denies any shortness of breath. He is a nonsmoker, he did not get a flu shot. - History of Current Complaint Chief Complaint: UCRespiratory Stated Complaint: SINUS COMPLAINT,COUGH Time Seen by Provider: 03/28/19 11:32 Hx Obtained From: Patient Onset/Duration: Gradual Onset Severity: Mild Pain Intensity: 0 Cough: Productive - Productive cough of greenish sputum. Associated Signs & Symptoms: Positive: Sinus Discomfort, Nasal Discharge - Allergies/Home Medications Allergies/Adverse Reactions: Allergies Allergy/AdvReac Type Severity Reaction Status Date / Time Cephalosporins Allergy Rash Verified 03/28/19 11:13 Macrolide Antibiotics Allergy Rash Verified 03/28/19 11:13 Penicillins Allergy Rash Verified 03/28/19 11:13 Sulfa (Sulfonamide Allergy Rash Verified 03/28/19 11:13 Antibiotics) Home Medications: Home Medications Diphenhydram/PE/Dm/Acetamin/GG [Mucinex Fast-Max Day Time] 1 mis PO BID PRN [History Confirmed 03/28/19] Ibuprofen TAB* [Advil TAB*] 400 mg PO Q6H PRN 03/28/19 [History Confirmed ] PMH/Surg Hx/FS Hx/Imm Hx Previously Healthy: Yes Endocrine History: Dyslipidemia Other History Of: Negative For: HIV, Hepatitis B, Hepatitis C, Anticoagulant Therapy - Surgical History Surgical History: Yes Surgery Procedure, Year, and Place: lithotripsy several years ago - Family History Known Family History: Positive: None Negative: Respiratory Disease - Social History Lives: With Family Alcohol Use: Rare Substance Use Type: None Smoking Status (MU): Never Smoked Tobacco - Immunization History Most Recent Influenza Vaccination: December 2014 Most Recent Tetanus Shot: unknown Vaccination Up to Date: Yes Review of Systems All Other Systems Reviewed And Are Negative: Yes ENT: Positive: Nasal Discharge, Sinus Congestion, Sinus Pain/Tenderness Respiratory: Positive: Cough - Productive cough of greenish sputum. Is Patient Immunocompromised?: No Physical Exam Triage Information Reviewed: Yes Appearance: Well-Appearing, No Pain Distress, Well-Nourished Vital Signs: Initial Vital Signs Temp 98.5 F 12/29/19 11:14 Pulse 86 03/28/19 11:14 Resp 15 03/28/19 11:14 BP 113/77 03/28/19 11:14 Pulse Ox 98 03/28/19 11:14 Vital Signs Reviewed: Yes Eyes: Positive: Conjunctiva Clear ENT: Positive: Hearing grossly normal, Pharynx normal - Yellowish post nasal coryza., Nasal congestion - Left turbinates are inflamed with yellowish thick nasal coryza., Nasal drainage, TMs normal, Sinus tenderness - Tender over the frontal sinuses., Uvula midline Neck: Positive: Supple, Nontender, No Lymphadenopathy Respiratory: Positive: Lungs clear, Normal breath sounds, No respiratory distress, No accessory muscle use Cardiovascular: Positive: RRR, No Murmur, Pulses Normal, Brisk Capillary Refill Musculoskeletal Exam: Normal Neurological Exam: Normal Psychological Exam: Normal Skin Exam: Normal Throat Pain/Nasal Course/Dx - Course Course Of Treatment: Patient is comfortable here. - Differential Dx/Diagnosis Provider Diagnosis: Sinusitis Discharge ED - Sign-Out/Discharge Documenting (check all that apply): Patient Departure All imaging exams completed and their final reports reviewed: No Studies - Discharge Plan Condition: Good Disposition: HOME Prescriptions: DOXYcycline CAP(*) [DOXYcycline 100MG CAP(*)] 100 mg PO BID 10 Days #20 cap Patient Education Materials: Sinusitis (ED) Referrals: Karen Manzano NP [Primary Care Provider] - Additional Instructions: Increase fluids, may take your [id number] medications as directed. No antacids, multivitamins or dairy products 2 hours before you take the doxycycline and 2 hours after you take the doxycycline however take it with food. Definite follow-up with your primary care provider in 5-7 days if no improvement. - Billing Disposition and Condition Condition: GOOD Disposition: Home
[2019-03-28 11:41] VITALS: BP 113/77
== END 2019-03-28 11:43 | disposition home or self-care (01) ==
LOC: UCCORT 09:58
DX: J32.9 Chronic sinusitis, unspecified (principal); Z88.1 Allergy status to other antibiotic agents; Z88.0 Allergy status to penicillin; Z88.2 Allergy status to sulfonamides
CPT/HCPCS: 99212; G0463